=== PATIENT | female | born 1990 | race Caucasian/White ===

== ENCOUNTER 2016-05-19 08:09 | Emergency (ER) | payer OTHER | END 2016-05-19 09:26 | disposition home or self-care (01) | DX: S90.31XA Contusion of right foot, initial encounter (principal); W21.89XA Striking against or struck by other sports equipment, initial encounter; Y93.89 Activity, other specified; Y92.009 Unspecified place in unspecified non-institutional (private) residence as the place of occurrence of the external cause; Y99.8 Other external cause status; R03.0 Elevated blood-pressure reading, without diagnosis of hypertension; F17.200 Nicotine dependence, unspecified, uncomplicated ==

== ENCOUNTER 2017-12-16 02:00 | Inpatient (IN) | payer OTHER ==
[2017-12-16 03:03] LABS: RUPTURE OF MEMBRANES PLUS POSITIVE (NEGATIVE)
[2017-12-16] MEDS ORDERED: LACTATED RINGERS 1,000 ML IV ONE ×3 (03:24→06:47)
[2017-12-16] MEDS ORDERED: CLINDAMYCIN INJ 300 MG in SODIUM CHLORIDE 0.9% 50 ML IV STA (03:26)
[2017-12-16] MEDS ORDERED: SODIUM CHLORIDE FLUSH 0.9% 10 ML SYRINGE ONE (03:32)
[2017-12-16] MEDS ORDERED: SODIUM CHLORIDE FLUSH 0.9% 10 ML SYRINGE IVP PRN ×2 (04:19→08:14)
[2017-12-16] MEDS ORDERED: ONDANSETRON 4 MG/2 ML VIAL IVP PRN (04:19)
[2017-12-16] MEDS ORDERED: CITRIC ACID/SODIUM CITRATE 15 ML UDC PO ONE (04:22)
[2017-12-16] MEDS ORDERED: TERBUTALINE 1 MG/ML VIAL SUBQ ONE ×2 (04:22→04:36)
[2017-12-16 04:27] LABS: BASOPHILS % (AUTO) 0.3 %; EOSINOPHILS # (AUTO) 0.1 10^3/uL (0.0-0.7); EOSINOPHILS % (AUTO) 0.5 %; HGB - HEMOGLOBIN 11.3 g/dL (12.0-16.0); LYMPHOCYTES # (AUTO) 1.8 10^3/uL (1.5-3.5); LYMPHOCYTES % (AUTO) 18.4 %; MEAN CORPUSCULAR HEMOGLOBIN 27.9 pg (27.0-31.0); MEAN CORPUSCULAR HGB CONC 32.6 g/dL (32.0-36.0); MEAN CORPUSCULAR VOLUME 85.7 fL (81.0-99.0); MEAN PLATELET VOLUME 8.2 fL (7.9-10.8); MONOCYTES # (AUTO) 0.9 10^3/uL (0.0-1.0); MONOCYTES % (AUTO) 8.6 %; NEUTROPHILS # (AUTO) 7.3 10^3/uL (1.5-6.6); NEUTROPHILS % (AUTO) 72.2 %; PLT - PLATELET COUNT 263 10^3/uL (130-450); RED BLOOD COUNT 4.04 10^6/uL (4.20-5.40); RED CELL DISTRIBUTION WIDTH 14.5 % (12.0-15.0); WHITE BLOOD COUNT 10.1 x10^3/uL (4.8-10.8)
--- NOTE | 2017-12-16 04:28 | HISTORY & PHYSICAL EXAMINATION ---
Admit History - Visit Reason Visit Reason: Contractions, Membranes rupture, Other (2 prior sections, planned repeat at [facility]) - : 4 Parity: 2 Premature: 0 Ectopic: 0 : 1 Care: positive: Rosemarie Risk/History: positive: Other (2 prior sections. December 2005 40-week yielding a 4082 g female; indication failed to dilate; note difficult spinal anesthetic. November 1999 10 repeat section at 39 weeks yielding a 4224 g fetus. Note spinal anesthetic was abandoned for general) Complications This : positive: None Smoking Status: Current some day smoker - Mother's Labs Mother's Blood Type: positive: A, O Mother's RH: positive: Positive GBS: positive: Group B Strep Positive (GBS positive in penicillin allergic patient; bacteria sensitive to Cleocin) Rubella Status: positive: Immune (Complete : Blood type O+ antibody negative; RPR negative; rubella immune; hepatitis B surface antigen negative; HIV negative TSH 1.261 normal strep positive urine negative, GC chlamydia negative, Pap normal, sequential screen negative) - Other Maternal History Other Maternal History: Mrs. Song is a 27-year-old woman who received her care at [facility] and was scheduled for a repeat section this morning. Unfortunately [facility] was on divert and she presents in early labor. She reports her rupture clear fluid at 0100 hrs. accompanied by mild contractions. The last time she had anything to eat or drink was midnight. She has no signs or symptoms of preeclampsia. She has no recent illness fevers chills or UTI symptoms. We discussed the risks of a section inclusive of infection, blood loss, transfusion and damage to intestines or urinary tract. She is had a history of difficult spinal anesthetics and this was communicated to anesthesia on-call. She does not want tubal ligation at this time. Informed consent paperwork signed. Meds/Allgy - Home Medications Home Medications: Ambulatory Orders Medication Instructions Recorded Confirmed Control 05/19/16 - Allergies Allergies/Adverse Reactions: Allergies Allergy/AdvReac Type Severity Reaction Status Date / Time Penicillins Allergy Unknown Verified 05/19/16 08:17 Physical - Abdominal Exam Vital Signs: Temp Pulse Resp BP Pulse Ox 98.4 F 87 18 133/70 H 97 12/16/17 02:50 12/16/17 02:50 12/16/17 02:50 12/16/17 02:50 12/16/17 02:50 Physical Exam - Physical Exam General: positive: No acute distress, Anxious, Alert HEENT: positive: EOMI, Moist mucous membranes, Dentition normal Neck: positive: Supple w/out meningeal sx, Thyroid normal Cardiac: positive: Regular Rate, Regular Rhythm Resipratory: positive: Clear to ausultation johnathan Abdomen: positive: Normal Bowel sounds Female : positive: Normal external, Dilated cervix (1 cm thick), Other (ROM plus test positive for ruptured membranes) Back: positive: Normal Extremities: positive: Normal ROM, No pedal edema Skin: positive: Warm and dry Neurologic: positive: Alert and Oriented X 3, Normal motor/no weakness, Normal reflexes, Normal Sensation, Normal Speech PSYCH: positive: Anxious (Mildly anxious as expected) Assessment/Plan - Assessment/Plan Assessment: Mrs. Song is a 39-week gestation in early labor and with a history of 2 prior sections; therefore, she is not a candidate. Previous section was landed SONYA with Dr. Baxter. She is GBS positive and antibiotic prophylaxis begun. Of note she has had prior difficulty with spinal anesthetic. Repeat section at [facility] is planned for 6 AM if the OR can be appropriately set up. Plan: * Nursing hydro station supervisor informed of need to transfer equipment from temp OR room in labor and delivery to permit OR suite. * Informed anesthesia of patient history * toco lysis with IV fluid hydration and terbutaline * Cleocin prophylaxis for GBS * Bicitra * sequential compression boots * type and screen * plan start time 08 23
[2017-12-16] MEDS ORDERED: TERBUTALINE 1 MG/ML VIAL SUBQ SCH (05:00)
[2017-12-16] MEDS ORDERED: LACTATED RINGERS 1,000 ML IV SCH ×2 (05:00→09:00)
--- NOTE | 2017-12-16 05:44 | ANESTHESIA ---
Pre-Anesthesia VS, & Labs - Diagnosis Labor, previous c/s - Procedure Repeat C/S Vital Signs: Temp Pulse Resp BP Pulse Ox 36.7 C 97 20 122/52 L 97 12/16/17 04:47 12/16/17 04:47 12/16/17 04:47 12/16/17 04:47 12/16/17 04:47 Height 5 ft 7 in Weight (kg) 120.202 kg Body Mass Index 29.0 - NPO >8 hours Last Fluid Intake: Clear liquid at Midnight - Is Patient ?: Yes - Lab Results Current Lab Results: Laboratory Tests 12/16/17 03:55: Blood Type O POSITIVE, Antibody Screen NEGATIVE 12/16/17 03:55: WBC 10.1, RBC 4.04 L, Hgb 11.3 L, Hct 34.6 L, MCV 85.7, MCH 27.9, MCHC 32.6, RDW 14.5, Plt Count 263, MPV 8.2, Neut # (Auto) 7.3 H, Lymph # (Auto) 1.8, Stanley # (Auto) 0.9, Eos # (Auto) 0.1, Baso # (Auto) 0.0, Absolute Nucleated RBC 0.04, Nucleated RBC % 0.4 Fish Bones: 12/16/17 03:55 Home Medications and Allergies Active Medications Lactated Ringer's (Lr) 1,000 mls @ 150 mls/hr IV .Q6H40M [facility] Ondansetron HCl (Zofran Inj) 4 mg IVP Q4H PRN PRN Reason: Nausea / Vomiting Sodium Chloride (Normal Saline Flush 0.9%) 10 ml IVP PRN PRN PRN Reason: NEEDED PER PROVIDER ORDERS Sodium Chloride (Normal Saline Flush 0.9%) 10 ml IVP 0100,0900,1700 [facility] Control 05/19/16 Allergies/Adverse Reactions: Allergies Allergy/AdvReac Type Severity Reaction Status Date / Time Penicillins Allergy Unknown Verified 05/19/16 08:17 Anes History & Medical History - Anesthetic History Anesthesia Complications: reports: No previous complications Family history of Anesthesia Complications: Denies Family history of Malignant Hyperthermia: Denies - Medical History Cardiovascular: reports: None Pulmonary: reports: None Gastrointestinal: reports: GERD (during ) Urinary: reports: None Neuro: reports: None Musculoskeletal: reports: None Endocrine/Autoimmune: reports: None Blood Disorders: reports: None Skin: reports: None Smoking Status: Former smoker (Quit 04/13) - Surgical History Gynecologic: section (Reports spinal with first section, had general for second) - Obstetrical History : 4 Parity: 2 Events: positive: None, Other (2 prior sections. December 2005 40-week yielding a 4082 g female; indication failed to dilate; note difficult spinal anesthetic. November 1999 10 repeat section at 39 weeks yielding a 4224 g fetus. Note spinal anesthetic was abandoned for general) Complications: positive: None Exam General: Alert, Oriented x3, Cooperative, No acute distress Dental: WNL Mouth Openin Fingerbreadth Neck Mobility: Normal Mallampati classification: I Thyromental Distance: 4-6 cm Respiratory: Lungs clear, Normal breath sounds, No respiratory distress, No accessory muscle use Cardiovascular: Regular rate, Normal S1, Normal S2, No murmurs Mental/Cognitive Status: Alert/Oriented X3, Normal for patient Cognitive Status: Within normal limits Plan Anesthesia Type: Spinal Consent for Procedure(s) Verified and Reviewed: Yes Code Status: Attempt Resuscitation ASA classification: 2-Mild systemic disease Is this case an emergency?: Yes
--- NOTE | 2017-12-16 06:00 | OPERATIVE REPORT ---
Operative Report - General Admit Date: 12/16/17 Planned Procedure: Repeat section Pre-Op Diagnosis: 39-week gestation in early labor; 2 prior sections Procedure Performed: Repeat lower segment transverse section; Lysis of abdominal wall and pelvic adhesions Post Op Diagnosis: Abdominal and pelvic adhesions;Same as above - Procedure Note Primary Surgeon: Ab Haile MD, F ACOG Secondary Surgeon: Ny Conn, certified nurse edging machine setter Anesthesia Provider: Enrique Riddle, certified nurse hydrographer Anesthesia Technique: Spinal Drain/Tube Type: Other (Hwang catheter) Complications: None - Other Other Information/Narrative: Prior to section informed consent was given to the patient. Risks were discussed: Blood loss, transfusion, infection, damage to abdominal viscera or urinary tract. Patient confirmed that she did not want tubal ligation or other sterilization procedure. Patient understands her procedure may be more technically difficult due to 2 prior operations and that complication is more likely.Appropriate paperwork was signed. Cleocin 300mg IVPB had been given as a prophylactic presurgical antibiotic. Patient was brought to the operating room placed on the table in the spine in the sitting position for induction of spinal anesthetic. Spinal was placed. Reference Enrique mcdermott notes. Patient was then moved to the supine. Abdominal pannus was taped up to provide better access to the previous scar. She was prepped and draped in the customary sterile fashion. Timeout briefing was done per protocol. Anesthesia was confirmed good through the level T10 prior to beginning the case. Abdominal wall was uneventfully opened In the layers with Pfannenstiel incision. On entry into the abdominal cavity, a mat of omental adhesions covered the majority of the lower abdomen and was adherent into the prior section scar both abdominal and uterine. These adhesions were lysed with sharp dissection and electrocautery. position and maternal anatomy were assessed. A curvilinear lower segment transverse 's hysterotomy incision was made with scalpel. Hysterotomy wound was gently widened with finger traction. Lens Grinder secured to the head and guided through the hysterotomy and laparotomy wounds with the aid of fundal pressure. Shoulders were uneventfully delivered. Cord was doubly clamped and transected. A segment of cord was preserved for possible cord gases. Uterus was exteriorized. Internal cavity inspected. Uterine adhesions were lysed sharply to provide mobility. The hysterotomy was closed in 2 layers. First a interlocking stitch of 0 Vicryl followed by a imbrication stitch of 0 Vicryl in a cardinal fashion. Abdominal cavity was lavaged with normal saline and contents inspected. Uterus was placed back within the cavity and preparations were made for closure. All operative sites were inspected. Abdominal peritoneum was closed with a running stitch of 2-0 Vicryl. Fascia was closed in 2 parts using a running stitch of 0 Vicryl. Subcutaneous tissue was closed with 2-0 Vicryl in interrupted fashion. Skin was closed with 4-0 Monocryl in a subcuticular stitch and dressed with Wound VAC. Final sponge needle and instrument counts were confirmed correct. Patient was aroused from anesthesia. She was transported to recovery room in good condition. Mother father and infant all bonded well. Findings 1. At 0658 hours a living male infant was born weighing 4071 g (9 pounds 0 oz) scoring Apgars of 8/8. Arterial pH 7.235, base excess -3.8; venous pH 7.346, base excess -2.7 There was no apparent trauma or congenital anomalies. 2. The center was extracted intact without evidence of abruption. Placenta was grade 2. Cord was three-vessel configuration without significant entanglement. A loose nuchal cord was noted that was no factor in the delivery. 3. There was no myometrial pathology and the cavity was regular without defect. Ovaries and tubes appeared normal. From the previous surgeries the prior bladder flap was high. There were significant abdominal wall & pelvic omental adhesions that involved both the prior Pfannenstiel incision scar and hysterotomy scars. Future surgeon should be cognizant of this risk. Please send a copy to Dr. Baxter, would [facility]
[2017-12-16] MEDS ORDERED: LACTATED RINGERS 200 ML IV ONE (06:13)
[2017-12-16] MEDS ORDERED: CLINDAMYCIN 600 MG/50 ML 50 ML IV ONE (06:39)
[2017-12-16] MEDS ORDERED: LACTATED RINGERS 500 ML IV ONE (07:00)
[2017-12-16 07:34] LABS: CORD ARTERIAL BLOOD HCO3 24.6; CORD ARTERIAL BLOOD PCO2 59.5; CORD ARTERIAL BLOOD PO2 22.4
[2017-12-16 07:35] LABS: CORD ARTERIAL BLD BASE EXCESS -3.8; CORD ARTERIAL BLOOD TOTAL CO2 26.5
[2017-12-16 07:38] LABS: CORD VENOUS BLOOD PH 7.346
[2017-12-16 07:39] LABS: CORD VENOUS BLD PO2 20.7; CORD VENOUS BLOOD BASE EXCESS -2.7; CORD VENOUS BLOOD HCO3 22.9; CORD VENOUS BLOOD OXYGEN SAT 47.9; CORD VENOUS BLOOD PCO2 42.9; CORD VENOUS BLOOD TOTAL CO2 24.3
[2017-12-16] MEDS ORDERED: ePHEDrine 50 MG/ML VIAL IVP ONE (08:05)
[2017-12-16] MEDS ORDERED: OXYTOCIN 10 UNIT/ML VIAL IV ONE (08:05)
[2017-12-16] MEDS ORDERED: KETOROLAC 30 MG/ML VIAL IVP ONE (08:05)
[2017-12-16] MEDS ORDERED: MORPHINE PF 5 MG/10 ML AMP EP ONE (08:05)
[2017-12-16] MEDS ORDERED: fentaNYL 100 MCG/2 ML VIAL IVP ONE (08:05)
[2017-12-16] MEDS ORDERED: ZOLPIDEM 5 MG TABLET PO PRN (08:14)
[2017-12-16] MEDS ORDERED: WITCH HAZEL/GLYCERIN 1 EACH MED..PAD TOP PRN (08:14)
[2017-12-16] MEDS ORDERED: HYDROCORTISONE/PRAMOXINE 10 GM PR PRN (08:14)
[2017-12-16] MEDS ORDERED: diphenhydrAMINE 25 MG CAPSULE PO PRN (08:14)
[2017-12-16] MEDS ORDERED: SODIUM CHLORIDE FLUSH 0.9% 10 ML SYRINGE IVP SCH ×2 (09:00)
[2017-12-16] MEDS: CELECOXIB 100 MG CAPSULE PO SCH ×2 (10:08→20:48)
[2017-12-16] MEDS: oxyCODONE 5 MG TABLET PO PRN ×3 (10:11→20:48)
[2017-12-16] MEDS: ACETAMINOPHEN 500 MG TABLET PO SCH ×2 (10:12→18:07)
[2017-12-17] MEDS: oxyCODONE 5 MG TABLET PO PRN ×2 (01:05→07:57)
[2017-12-17] MEDS: ACETAMINOPHEN 500 MG TABLET PO SCH ×3 (02:08→17:51)
[2017-12-17 06:57] LABS: BASOPHILS # (AUTO) 0.1 10^3/uL (0.0-0.1); BASOPHILS % (AUTO) 0.4 %; EOSINOPHILS # (AUTO) 0.1 10^3/uL (0.0-0.7); EOSINOPHILS % (AUTO) 0.4 %; HGB - HEMOGLOBIN 10.3 g/dL (12.0-16.0); LYMPHOCYTES # (AUTO) 1.4 10^3/uL (1.5-3.5); LYMPHOCYTES % (AUTO) 10.9 %; MEAN CORPUSCULAR HEMOGLOBIN 28.5 pg (27.0-31.0); MEAN CORPUSCULAR HGB CONC 33.9 g/dL (32.0-36.0); MEAN PLATELET VOLUME 7.7 fL (7.9-10.8); MONOCYTES % (AUTO) 7.8 %; NEUTROPHILS # (AUTO) 10.7 10^3/uL (1.5-6.6); NEUTROPHILS % (AUTO) 80.5 %; PLT - PLATELET COUNT 221 10^3/uL (130-450); RED BLOOD COUNT 3.63 10^6/uL (4.20-5.40); RED CELL DISTRIBUTION WIDTH 14.4 % (12.0-15.0); WHITE BLOOD COUNT 13.2 x10^3/uL (4.8-10.8)
[2017-12-17] MEDS: CELECOXIB 100 MG CAPSULE PO SCH ×2 (09:17→21:11)
[2017-12-17] MEDS ORDERED: LACTULOSE 10 GM /15 ML UDC PO SCH (14:00)
[2017-12-17] MEDS: SIMETHICONE CHEW 80 MG TABLET PO SCH ×2 (17:50→21:12)
--- NOTE | 2017-12-17 18:47 | PROVIDER PROGRESS NOTE ---
Subjective - General Admit Date: 12/16/17 Procedure Date: 12/16/17 Post Op Days: 1 Procedure Performed: Repeat C/S - Review of Systems Wound/Incisions: positive: Healing well, Other (Wound VAC functional) Drain Type: Hwang removed General: positive: No symptoms HEENT: positive: No symptoms Pulmonary: positive: No symptoms Cardiovascular: positive: No symptoms Gastrointestinal: positive: Constipation (Accompanied by bloating. "I feel gassy") Genitourinary: positive: Other (Diminishing non-foul lochia) Musculoskeletal: positive: No symptoms Skin: positive: No symptoms Psychiatric: positive: No symptoms - Other Other Information/Narrative: Patient feels well and was up in bed eating breakfast. She had just finished breast-feeding and reports no difficulty. We reviewed care of the wound VAC. He also reviewed warning signs for post discharge: Fever 100.5 or greater, followed discharge, abdominal pain not controlled by analgesics, calf pain, severe headache, or anything out of the ordinary felt significant. Objective - Patient Data Vital Signs: Vital Signs x48h Temp Pulse Resp BP Pulse Ox 12/17/17 17:00 98.4 F 105 H 18 139/80 H 98 12/17/17 12:36 98.8 F 91 16 129/62 98 Weight: Weight 12/15/17 12/16/17 12/17/17 23:59 23:59 23:59 Weight (kg) 120.202 kg Intake & Output: Intake and Output Totals x24h 12/15/17 12/16/17 12/17/17 23:59 23:59 23:59 Intake Total 4730 1250 Output Total 4925 3100 Balance -195 -1850 - Lab Results Lab Results: 12/17/17 06:44 Other Lab Results: Lab Results x24hrs 12/17/17 Range/Units 06:44 WBC 13.2 H (4.8-10.8) x10^3/uL RBC 3.63 L (4.20-5.40) 10^6/uL Hgb 10.3 L (12.0-16.0) g/dL Hct 30.5 L (37.0-47.0) % MCV 84.0 (81.0-99.0) fL MCH 28.5 (27.0-31.0) pg MCHC 33.9 (32.0-36.0) g/dL RDW 14.4 (12.0-15.0) % Plt Count 221 (130-450) 10^3/uL MPV 7.7 L (7.9-10.8) fL Neut # (Auto) 10.7 H (1.5-6.6) 10^3/uL Lymph # (Auto) 1.4 L (1.5-3.5) 10^3/uL Griggs # (Auto) 1.0 (0.0-1.0) 10^3/uL Eos # (Auto) 0.1 (0.0-0.7) 10^3/uL Baso # (Auto) 0.1 (0.0-0.1) 10^3/uL Absolute Nucleated RBC 0.01 x10^3/uL Nucleated RBC % 0.1 /100WBC - Current Medications Current Medications: Current Medications Generic Name Dose Route Start Last Admin Trade Name Freq PRN Reason Stop Dose Admin Acetaminophen 1,000 mg 12/16/17 09:00 12/17/17 17:51 Tylenol PO 1,000 mg Q8H CARINA Administration Celecoxib 200 mg 12/16/17 09:00 12/17/17 09:17 Celebrex PO 200 mg BID CARINA Administration Oxycodone HCl 5 mg 12/16/17 08:14 12/17/17 07:57 Roxicodone PO 5 mg Q4HR PRN Administration PAIN Simethicone 80 mg 12/17/17 18:00 12/17/17 17:50 Mylicon PO 80 mg 0900,1300,1800,2100 CARINA Administration Sodium Chloride 10 ml 12/16/17 09:00 12/16/17 20:49 Normal Saline Flush 0.9% IVP 10 ml 0100,0900,1700 CARINA Administration Physical Exam - Physical Exam General: positive: No acute distress, Alert HEENT: positive: EOMI, Moist mucous membranes Neck: positive: Supple w/out meningeal sx Cardiac: positive: Regular Rate Resipratory: positive: Clear to ausultation johnathan Abdomen: positive: Normal Bowel sounds, Surgical Scars (Bandage clean and dry, wound VAC functional) Female : positive: Normal external, Vaginal Bleeding (Mild non-foul lochia, normal), Enlarged uterus (16-week size firm nontender) Extremities: positive: Normal ROM, No pedal edema Skin: positive: Warm and dry Neurologic: positive: Alert and Oriented X 3, Normal motor/no weakness, Normal Sensation, Normal Speech Assessment/Plan - Assessment/Plan Assessment: Patient hemodynamically stable and recovering from surgery well. She is adjusting to the phase, breast-feeding without difficulty. Patient and father appear happy. Plan: Continue supportive care. Patient is motivated for discharge tomorrow.
[2017-12-17] MEDS ORDERED: DOCUSATE SODIUM 100 MG CAPSULE PO SCH (21:00)
[2017-12-18] MEDS: ACETAMINOPHEN 500 MG TABLET PO SCH ×2 (02:11→10:10)
[2017-12-18] MEDS: oxyCODONE 5 MG TABLET PO PRN (07:58)
[2017-12-18 08:16] VITALS: BP 117/66
[2017-12-18] MEDS: SIMETHICONE CHEW 80 MG TABLET PO SCH (08:57)
[2017-12-18] MEDS: CELECOXIB 100 MG CAPSULE PO SCH (08:57)
--- NOTE | 2017-12-18 08:57 | PROVIDER PROGRESS NOTE ---
Subjective - Prog Note Date Prog Note Date: 12/18/17 Prog Note Time: 08:52 - Subjective Pt reports feeling: Improved Subjective: Patient just ambulated out of bathroom. Urinating well. Pain controlled although she feels a burning sensation in her RLQ by the wound vac. Desires to go home today. Objective - Vital Signs/Intake & Output Vital Signs: Vital Signs x48h Temp Pulse Resp BP BP Pulse Ox 12/18/17 08:16 97.7 F 77 16 117/66 99 12/18/17 04:30 97.5 F L 79 20 117/46 L 96 12/18/17 01:04 98.4 F 82 18 124/64 99 Intake & Output: Intake & Output 12/15/17 12/16/17 12/17/17 12/18/17 23:59 23:59 23:59 23:59 Intake Total 4730 1250 1325 Output Total 4925 3100 Balance -195 -1850 1325 - Objective General Appearance: positive: No acute distress Eyes Bilateral: positive: Normal inspection Abdomen: positive: Non-tender (Prevena wound vac in place and working well. Instructions given.) Neurologic/Psychiatric: positive: Oriented x3 - Lab Results Fish Bones: 12/17/17 06:44 Assessment/Plan - Problem List (1) delivery delivered Impression: 27 yo S/p repeat CD 12/16/2017 Normal recovery Discharge to home Follow up next week at [facility] for removal of Prevena wound vac [phone] Discharge Plan Disposition: 01 Home, Self Care Condition: Good Diet: Regular Shower Restrictions: No Driving Restrictions: Yes (No driving) Weight Bearing: Full Weight No Smoking: If you smoke, Please STOP! Call for help.
[2017-12-18] MEDS ORDERED: LACTULOSE 10 GM /15 ML UDC PO SCH (09:00)
[2017-12-18] MEDS ORDERED: POLYETHYLENE GLYCOL 3350 17 GM PACKET PO PRN (09:01)
--- NOTE | 2017-12-18 10:51 | DISCHARGE SUMMARY ---
Physician: Aretha Pritchard DO FACOG DATE OF ADMISSION: 12/16/2017 DATE OF DISCHARGE: 12/18/2017 DIAGNOSES ON ADMISSION 1. A 27-year-old G4, P3-0-0-3 with a 39-week intrauterine . 2. Prior delivery. 3. Spontaneous rupture of membranes. DIAGNOSES ON DISCHARGE 1. A 27-year-old G4, P4-0-0-4, status post repeat delivery on 12/16/2017. 2. Normal recovery. BRIEF HISTORY AND HOSPITAL COURSE: Patient is a patient of the [facility] who spontaneously ruptured her membranes. They were on divert, and she presented here at [facility]. Patient was found to be ruptured, and she underwent a repeat delivery. Apgars were 8 and 8 at one and five minutes, respectively, and the baby weighed 4071 grams or 9 pounds. There were no complications. Patient's postoperative course has been unremarkable. She is ambulating and tolerating her regular diet. Her pain is controlled with oral medications, and she is urinating without difficulty. Lochia is noted to be very light. DISCHARGE INSTRUCTIONS: Patient will be discharged to home on 12/18/2017 and given prescriptions for oxycodone. She may take [id number] Tylenol and ibuprofen as needed. Patient is to see us at [facility] next week for removal of Prevena wound VAC. Patient should call should she have any worsening fevers, chills, abdominal pain, or vaginal bleeding. TD: 12/18/2017 09:06 JAY
[2017-12-18] MEDS ORDERED: DOCUSATE SODIUM 100 MG CAPSULE PO SCH (11:00)
== END 2017-12-18 12:05 | disposition home or self-care (01) | DRG 788 ==
LOC: WFO 02:00 → FBP 02:02 → WFO 04:15 → FBP 04:19
PROVIDERS: ADMIT Obstetrics & Gynecology; ATTEND Obstetrics & Gynecology
PROC: 10D00Z1 Extraction of Products of Conception, Low, Open Approach (ICD-10-PCS; principal; 2017-12-16 06:00)
DX: O34.219 Maternal care for unspecified type scar from previous cesarean delivery (principal); N85.8 Other specified noninflammatory disorders of uterus; O99.824 Streptococcus B carrier state complicating childbirth; O99.62 Diseases of the digestive system complicating childbirth; K66.0 Peritoneal adhesions (postprocedural) (postinfection); O99.334 Smoking (tobacco) complicating childbirth; Z3A.39 39 weeks gestation of pregnancy; Z37.0 Single live birth
CPT/HCPCS: 36415; 82803; 84112; 85025; 86850; 86900; 86901; 99213